=== PATIENT | female | born 1960 | race Caucasian/White ===

== ENCOUNTER 2022-01-23 09:30 | Outpatient (CLI) | payer OTHER ==
[~2022-01-23 09:30] MED LIST: CIPRO250 MG PO; DICY10CA PO; FLAGYL500MG PO; INTESTINEX680 MG PO; OMEPRAZOLE20 MG PO; TYLENOL 325MG325 MG PO; TYLENOL-CODEINE1 TAB PO
== END 2022-01-23 10:00 | disposition home or self-care (01) ==
LOC: MRI 09:30
PROVIDERS: ATTEND Orthopaedic Surgery
DX: M25.571 Pain in right ankle and joints of right foot (principal); M25.561 Pain in right knee; M25.562 Pain in left knee; S83.200A Bucket-handle tear of unspecified meniscus, current injury, right knee, initial encounter
CPT/HCPCS: 73721